=== PATIENT | female | born 1975 | race African-American/Black ===

== ENCOUNTER 2017-12-28 15:47 | Emergency (ER) | payer OTHER, SELFPAY ==
[~2017-12-28] VITALS: Ht 167.6 cm; Wt 87.3 kg
[2017-12-28] MEDS ORDERED: PROPARACAINE/FLUORESCEIN SOD 0.5-0.25% 0.5 ML OPHTHALMIC SOLUTION OU ONE (18:00)
[2017-12-28] MEDS ORDERED: ERYTHROMYCIN 0.5% 3.5 GM TUBE OPHTHALMIC OINTMENT OS ONE (18:30)
[2017-12-28 19:02] VITALS: BP 147/78
== END 2017-12-28 19:15 | disposition home or self-care (01) ==
LOC: EMS 15:51
DX: H16.002 Unspecified corneal ulcer, left eye (principal); R03.0 Elevated blood-pressure reading, without diagnosis of hypertension; L56.8 Other specified acute skin changes due to ultraviolet radiation
CPT/HCPCS: 99283; Z7610

== ENCOUNTER 2018-02-13 10:09 | Inpatient (IN) | payer OTHER ==
[~2018-02-13] VITALS: Ht 167.6 cm; Wt 84.1 kg
[2018-02-13 11:09] LABS: BASOPHILS % (AUTO) 0.9 % (0.0-2.0); EOSINOPHILS % (AUTO) 0 % (1.0-6.0); HEMATOCRIT 25.2 % (36-46); HEMOGLOBIN 7.8 g/dL (12.0-16.0); LYMPHOCYTES % (AUTO) 11.5 % (22.0-44.0); MEAN CORPUSCULAR HEMOGLOBIN 20.4 pg (26.0-34.0); MEAN CORPUSCULAR HGB CONC 30.9 G/dL (31.0-37.0); MEAN CORPUSCULAR VOLUME 66 fL (80-100); MONOCYTES # (AUTO) 0.8 K/uL (0.1-1.0); MONOCYTES % (AUTO) 9.4 % (2.0-9.0); NEUTROPHILS # (AUTO) 6.9 K/uL (1.8-7.7); NEUTROPHILS % (AUTO) 78.2 % (40.0-70.0); PLATELET COUNT (AUTO) 289 K/uL (150-450); RED BLOOD CELL COUNT(AUTO) 3.82 MIL/uL (4.00-5.20); RED CELL DISTRIBUTION WIDTH 18.3 % (11.5-14.5)
[2018-02-13 11:20] LABS: ANION GAP 6 mmol/L (8-16); CALCIUM, TOTAL 8.7 mg/dL (8.8-10.5); CARBON DIOXIDE 29 mmol/L (22-29); CHLORIDE 105 mmol/L (98-107); CREATININE 0.79 mg/dL (0.60-1.30); GLOMERULAR FILTR. RATE CALC > 60 mL/min (>60); GLUCOSE,RANDOM 98 mg/dL (70-110); POTASSIUM 3.6 mmol/L (3.5-5.1); SODIUM SERUM 140 mmol/L (136-145); UREA NITROGEN, BLOOD 5 mg/dL (7-18)
[2018-02-13 11:25] LABS: ALANINE AMINOTRANSFERASE 23 U/L (12-78); ALKALINE PHOSPHATASE 75 U/L (46-116); ASPARTATE AMINOTRANSFERASE 12 U/L (15-37); BILIRUBIN,TOTAL 0.3 mg/dL (0.1-1.0); TOTAL PROTEIN, SERUM 7.6 g/dL (6.4-8.2)
[2018-02-13] MEDS ORDERED: IOVERSOL 350 MG/ML 150 ML VIAL ONE (11:45)
[2018-02-13] MEDS ORDERED: SODIUM CHLORIDE 0.9% 100 ML ONE (11:45)
[2018-02-13] MEDS ORDERED: MORPHINE SULFATE 4 MG/ML SYRINGE IVP ONE ×2 (12:30→14:00)
[2018-02-13] MEDS ORDERED: PIPERACILLIN/TAZO 3.375 GM/D5W 50 ML IV ONE (14:00)
[2018-02-13] MEDS ORDERED: VANCOMYCIN HCL 1.75 GM in DEXTROSE 5%-WATER 250 ML IV SCH (14:00)
[2018-02-13] MEDS ORDERED: VANCOMYCIN HCL 1.75 GM in DEXTROSE 5%-WATER 250 ML IV ONE (14:00)
[2018-02-13] MEDS ORDERED: SODIUM CHLORIDE 0.9% 500 ML IV ONE (14:22)
[2018-02-13 14:30] VITALS: BP 157/88
[2018-02-13] MEDS ORDERED: ONDANSETRON HCL 4 MG/2 ML VIAL IVP PRN (15:15)
[2018-02-13] MEDS ORDERED: MORPHINE SULFATE 2 MG/ML SYRINGE IVP PRN ×2 (15:15)
[2018-02-13] MEDS ORDERED: BISACODYL 10 MG RECTAL RECTAL SUPPOSITORY PR PRN (15:15)
[2018-02-13] MEDS ORDERED: MAGNESIUM HYDROXIDE SUSPENSION 30 ML UDCUP PO PRN (15:15)
[2018-02-13] MEDS ORDERED: ZOLPIDEM TARTRATE 5 MG TABLET PO PRN (15:15)
[2018-02-13] MEDS ORDERED: ACETAMINOPHEN 325 MG TABLET PO PRN (15:15)
[2018-02-13] MEDS: HEPARIN SODIUM,PORCINE 5,000 UNITS/ML VIAL SQ SCH (16:00)
[2018-02-13] MEDS ORDERED: SODIUM PHOS/SODIUM BIPHOS 133 ML ENEMA PR ONE (16:15)
[2018-02-13] MEDS ORDERED: LIDOCAINE HCL 1%/EPI 1:200,000/PF 30 ML VIAL ONE (16:38)
[2018-02-13] MEDS ORDERED: BUPIVACAINE HCL/PF 0.5% 30 ML VIAL ONE (16:38)
[2018-02-13] MEDS ORDERED: RINGERS SOLUTION,LACTATED 1,000 ML IV ONE (16:38)
[2018-02-13] MEDS ORDERED: HYDROmorphone 2 MG/ML SYRINGE IVP PRN (16:45)
[2018-02-13] MEDS ORDERED: MEPERIDINE HCL/PF 25 MG/0.5 ML AMP IVP PRN (16:45)
[2018-02-13] MEDS ORDERED: FentaNYL CITRATE-PF 100 MCG/2 ML VIAL IVP PRN (16:45)
[2018-02-13] MEDS ORDERED: ACETAMINOPHEN 500 MG TABLET PO PRN (17:45)
[2018-02-13] MEDS ORDERED: IBUPROFEN 600 MG TABLET PO PRN (17:45)
[2018-02-13] MEDS ORDERED: HYDROCODONE/ACETAMINOPHEN 5-325 MG TABLET PO PRN (17:45)
[2018-02-13] MEDS ORDERED: FentaNYL CITRATE-PF 100 MCG/2 ML VIAL ONE (18:00)
[2018-02-13 19:15] VITALS: BP 144/79
[2018-02-13] MEDS: DOCUSATE SODIUM 100 MG CAPSULE PO SCH (19:50)
[2018-02-13] MEDS: PIPERACILLIN/TAZO 3.375 GM/D5W 50 ML IV SCH (19:51)
[2018-02-13] MEDS: HYDROCODONE/ACETAMINOPHEN 5-325 MG TABLET PO PRN (21:43)
[2018-02-13] MEDS ORDERED: ONDANSETRON HCL 4 MG/2 ML VIAL IVP ONE (22:47)
[2018-02-13] MEDS ORDERED: SUCCINYLCHOLINE CHLORIDE 20 MG/ML 10 ML VIAL IVP ONE (22:47)
[2018-02-13] MEDS ORDERED: LIDOCAINE HCL/PF 2% 5 ML VIAL IM ONE (22:47)
[2018-02-13] MEDS ORDERED: PROPOFOL 1% 20 ML VIAL IVP ONE (22:47)
[2018-02-13] MEDS ORDERED: FentaNYL CITRATE-PF 100 MCG/2 ML VIAL IVP ONE (22:47)
[2018-02-13] MEDS ORDERED: MIDAZOLAM HCL 2 MG/2 ML VIAL IVP ONE (22:47)
[2018-02-13] MEDS ORDERED: SODIUM CHLORIDE 0.9% IRRIG BTL 1,000 ML IRRIG ONE (23:17)
[2018-02-14 00:15] VITALS: BP 142/76
[2018-02-14] MEDS: HEPARIN SODIUM,PORCINE 5,000 UNITS/ML VIAL SQ SCH ×4 (02:18→23:28)
[2018-02-14] MEDS: PIPERACILLIN/TAZO 3.375 GM/D5W 50 ML IV SCH ×4 (02:18→20:47)
[2018-02-14] MEDS: HYDROCODONE/ACETAMINOPHEN 5-325 MG TABLET PO PRN ×5 (02:18→20:47)
[2018-02-14 04:00] VITALS: BP 141/74
[2018-02-14] MEDS ORDERED: SODIUM CHLORIDE 0.9% 500 ML IV ONE (05:18)
[2018-02-14] MEDS: VANCOMYCIN HCL 1.5 GM in DEXTROSE 5%-WATER 250 ML IV SCH ×2 (05:19→17:43)
[2018-02-14 06:09] LABS: BASOPHILS % (AUTO) 0.4 % (0.0-2.0); EOSINOPHILS % (AUTO) 0.4 % (1.0-6.0); HEMATOCRIT 23.8 % (36-46); HEMOGLOBIN 7.5 g/dL (12.0-16.0); LYMPHOCYTES # (AUTO) 1.3 K/uL (1.0-4.8); LYMPHOCYTES % (AUTO) 15.1 % (22.0-44.0); MEAN CORPUSCULAR HEMOGLOBIN 20.6 pg (26.0-34.0); MEAN CORPUSCULAR HGB CONC 31.3 G/dL (31.0-37.0); MEAN CORPUSCULAR VOLUME 66 fL (80-100); MONOCYTES # (AUTO) 0.5 K/uL (0.1-1.0); NEUTROPHILS # (AUTO) 6.6 K/uL (1.8-7.7); NEUTROPHILS % (AUTO) 78.1 % (40.0-70.0); PLATELET COUNT (AUTO) 259 K/uL (150-450); RED BLOOD CELL COUNT(AUTO) 3.62 MIL/uL (4.00-5.20); RED CELL DISTRIBUTION WIDTH 18.4 % (11.5-14.5)
[2018-02-14 06:33] LABS: ANION GAP 10 mmol/L (8-16); CALCIUM, TOTAL 8.3 mg/dL (8.8-10.5); CARBON DIOXIDE 25 mmol/L (22-29); CHLORIDE 102 mmol/L (98-107); CREATININE 0.71 mg/dL (0.60-1.30); GLOMERULAR FILTR. RATE CALC > 60 mL/min (>60); GLUCOSE,RANDOM 93 mg/dL (70-110); SODIUM SERUM 137 mmol/L (136-145); UREA NITROGEN, BLOOD 5 mg/dL (7-18)
[2018-02-14 07:07] LABS: POTASSIUM 2.9 mmol/L (3.5-5.1)
[2018-02-14 07:35] VITALS: BP 141/71
[2018-02-14] MEDS: OXYGEN THERAPY IH SCH (08:00)
[2018-02-14] MEDS: PANTOPRAZOLE SODIUM 40 MG DR TABLET PO SCH (08:09)
[2018-02-14] MEDS: FERROUS SULFATE 325 MG EC TABLET PO SCH ×3 (08:09→17:44)
[2018-02-14] MEDS: DOCUSATE SODIUM 100 MG CAPSULE PO SCH ×2 (08:09→20:47)
[2018-02-14] MEDS ORDERED: POTASSIUM CHLORIDE 20 MEQ ER TABLET PO PRN (09:00)
[2018-02-14] MEDS ORDERED: POTASSIUM CHL 10 MEQ/WATER 50 ML IV PRN (09:00)
[2018-02-14 11:59] VITALS: BP 146/87
[2018-02-14 15:58] VITALS: BP 164/95
[2018-02-14 19:43] VITALS: BP 160/77
[2018-02-15 00:22] VITALS: BP 141/70
[2018-02-15 04:00] VITALS: BP 136/74
[2018-02-15] MEDS: HYDROCODONE/ACETAMINOPHEN 5-325 MG TABLET PO PRN ×4 (04:05→17:00)
[2018-02-15] MEDS: PIPERACILLIN/TAZO 3.375 GM/D5W 50 ML IV SCH ×3 (04:05→15:03)
[2018-02-15] MEDS: VANCOMYCIN HCL 1.5 GM in DEXTROSE 5%-WATER 250 ML IV SCH ×2 (05:04→18:00)
[2018-02-15 07:04] LABS: ANION GAP 9 mmol/L (8-16); CALCIUM, TOTAL 8.5 mg/dL (8.8-10.5); CARBON DIOXIDE 26 mmol/L (22-29); CHLORIDE 103 mmol/L (98-107); CREATININE 1.06 mg/dL (0.60-1.30); GLOMERULAR FILTR. RATE CALC > 60 mL/min (>60); GLUCOSE,RANDOM 89 mg/dL (70-110); POTASSIUM 3.3 mmol/L (3.5-5.1); SODIUM SERUM 138 mmol/L (136-145); UREA NITROGEN, BLOOD 7 mg/dL (7-18); VANCOMYCIN,RANDOM 17.7 mcg/mL (25.0-50.0)
[2018-02-15 07:15] VITALS: BP 154/89
[2018-02-15] MEDS: HEPARIN SODIUM,PORCINE 5,000 UNITS/ML VIAL SQ SCH ×2 (08:00→16:00)
[2018-02-15] MEDS: OXYGEN THERAPY IH SCH (08:00)
[2018-02-15] MEDS: PANTOPRAZOLE SODIUM 40 MG DR TABLET PO SCH (08:41)
[2018-02-15] MEDS: DOCUSATE SODIUM 100 MG CAPSULE PO SCH (08:41)
[2018-02-15] MEDS: FERROUS SULFATE 325 MG EC TABLET PO SCH ×3 (08:41→17:52)
[2018-02-15 11:39] VITALS: BP 154/78
[2018-02-15 15:10] VITALS: BP 142/89
[2018-02-15] MEDS ORDERED: CIPR-278 PO (15:53)
[2018-02-15] MEDS ORDERED: METR500 PO (15:53)
[2018-02-15] MEDS ORDERED: HYDR-309 PO (15:55)
[2018-02-15] MEDS ORDERED: FERR-89 PO (15:59)
[2018-02-15] MEDS ORDERED: TRAM50TA4 PO (16:26)
== END 2018-02-15 18:10 | disposition home or self-care (01) | DRG 226 ==
LOC: EMS 10:10 → 6N 13:51
PROVIDERS: ADMIT Internal Medicine; ATTEND Internal Medicine
PROC: 0DBQ0ZZ Excision of Anus, Open Approach (ICD-10-PCS; 2018-02-13)
PROC: 06BY0ZC Excision of Hemorrhoidal Plexus, Open Approach (ICD-10-PCS; principal; 2018-02-13 17:00)
DX: K61.1 Rectal abscess (principal); E87.6 Hypokalemia; D64.9 Anemia, unspecified; K60.3 Anal fistula
CPT/HCPCS: 74177; 84132; 87081; 88304; 96374; 96376; 99285; J0330; J1644; J2250; J2270; J2405; J2543; J2704; J3010; J3370; J3490; J7040; J7050; J7060; J7120

== ENCOUNTER 2019-05-22 13:23 | Emergency (ER) | payer OTHER ==
[~2019-05-22] VITALS: Ht 172.7 cm; Wt 77.3 kg
[~2019-05-22 13:23] MED LIST: CIPR-278 PO; FERR-89 PO; HYDR-309 PO; METR500 PO; TRAM50TA4 PO
[2019-05-22 13:43] VITALS: BP 143/85
[2019-05-22] MEDS ORDERED: OFLOXACIN 0.3% 5 ML OPHTHALMIC SOLUTION OD ONE (14:45)
[2019-05-22] MEDS ORDERED: FLUORESCEIN SODIUM 1 MG STRIP OU ONE (14:45)
[2019-05-22] MEDS ORDERED: PROPARACAINE HCL 0.5% 15 ML OPHTHALMIC SOLUTION OU ONE (14:45)
== END 2019-05-22 15:10 | disposition home or self-care (01) ==
LOC: EMS 13:24
DX: H16.001 Unspecified corneal ulcer, right eye (principal); R03.0 Elevated blood-pressure reading, without diagnosis of hypertension; Z79.899 Other long term (current) drug therapy